=== PATIENT | female | born 1985 | race Caucasian/White ===

== ENCOUNTER 2017-10-04 15:48 | Inpatient (IN) | payer OTHER ==
[2017-10-04] MEDS ORDERED: Bupivacaine 0.75%/D5W 2 ML Amp ONE (16:47)
[2017-10-04] MEDS ORDERED: fentaNYL 100 MCG/2 ML SDV ONE (16:47)
[2017-10-04] MEDS ORDERED: EPINEPHrine 1 MG/ML SDV ONE (16:47)
[2017-10-04] MEDS ORDERED: Penicillin G Potassium 5 MILLUNITS in Sodium Chloride 0.9% 100 ML IV ONE (16:59)
[2017-10-04] MEDS ORDERED: Ondansetron 4 MG/2 ML SDV IV PRN (16:59)
[2017-10-04] MEDS ORDERED: Lactated Ringers 500 ML IV ONE (16:59)
[2017-10-04] MEDS ORDERED: Tranexamic Acid 1,000 MG in Sodium Chloride 0.9% 100 ML IV PRN (16:59)
[2017-10-04] MEDS ORDERED: Sodium Chloride 0.9% 10 ML Syringe FLUSH PRN (16:59)
[2017-10-04] MEDS ORDERED: Acetaminophen 325 MG Tab PO PRN (16:59)
[2017-10-04] MEDS ORDERED: Carboprost Tromethamine 250 MCG/1 ML Amp IM PRN (16:59)
[2017-10-04] MEDS ORDERED: Methylergonovine 0.2 MG/1 ML Amp IM PRN (16:59)
[2017-10-04] MEDS ORDERED: Misoprostol 400 MCG (4 X 100 MCG TAB) RECTAL PRN (16:59)
[2017-10-04] MEDS ORDERED: Lidocaine 1% 30 ML SDV INJECT PRN (16:59)
[2017-10-04] MEDS ORDERED: Oxytocin/Normal Saline 30 UNIT/500 ML BAG IV SCH (17:00)
[2017-10-04] MEDS ORDERED: Lactated Ringers 1,000 ML IV SCH (17:00)
--- NOTE | 2017-10-04 17:48 | PCM.PRNOTE ---
- Free Text/Narrative Note: Requested to provide analgesia to full term patient in severe pain. Upon entering the room, patient is supine in bed complaining of severe abdominal/ pelvic pain and discomfort. Procedure was discussed with patient including adverse outcomes and expectations. Pt consented to analgesia, SAB/IT. Pt placed into a sitting position. Landmarks for SAB/IT were identified and marked. Back was prepped with betadine x3. A sterile, transparent, fenestrated drape was applied. Excess betadine was removed. Using 3 mL of a 1% lidocaine solution, a skin wheel was placed at the L3/L4 interspace. A 24 ga (4 inch) Pencan spinal needle was inserted until positive for CSF. Negative for heme or paresthesias. Injected fentanyl 20 mcg, sufentanil 10 mcg, and 10 mg of a 0.75 % bupivacaine solution with an epi wash. Pt was placed left lateral position for approximately 20 minutes. There were zero complications or adverse outcomes. Will continue to monitor.
[2017-10-04] MEDS ORDERED: Benzocaine/Menthol 20%-0.5% Spray 56 GM Canister TOP PRN (19:34)
[2017-10-04] MEDS ORDERED: Simethicone 80 MG Tab.Chew PO PRN (19:34)
[2017-10-04] MEDS ORDERED: Penicillin G Potassium 3 MILLUNITS in Sodium Chloride 0.9% 100 ML IV SCH (22:00)
--- NOTE | 2017-10-05 00:31 | HP ---
CHIEF COMPLAINT: Increased force and frequency of contractions. HISTORY OF PRESENT ILLNESS: A 32-year-old 4, para 3-0-0-3 at 39 and 6/7 weeks' gestation based on last menstrual period, presents to Labor and Delivery reporting contractions starting around noon today and became more regular at approximately 2:00 p.m., presented to the hospital around 4:00 and found to be 7 cm dilated with bag of water intact and vertex presenting. Contractions were quite strong at that time and she was requesting intrathecal anesthesia had arrive around the same time I did, an intrathecal was placed, and she is now quite comfortable. She reports today good movement. No vaginal bleeding or leakage of fluid. No chest pain or shortness of breath. No headaches or blurry vision. No right upper quadrant pain. The swelling has been absent. She does, however, continue to have trouble with her varicose veins despite use of compression hose. No acute concerns other than excitement to have the baby. OBSTETRICAL HISTORY: #1 delivered on 03/01/2011, 41 weeks' gestation, male infant, vaginal delivery, named Donaldo, weight 4139 grams under intrathecal anesthesia, 10 hours of stage I, pushed for 2 hours, induction of labor because of postdates, delivered here at [facility] by Dr. Hooker. #2 delivered on 02/09/2013, 38 weeks 1 day gestation, male infant, vaginal spontaneous delivery, named Juanjose, weight 3430 grams, group B strep positive, intrathecal anesthesia, labor 10 hours, pushed for approximately 20 minutes, scores of 8 and 9, delivered by Dr. Reed. #3 delivered on 09/22/2014, 41 weeks 1 day gestation, female , spontaneous vaginal delivery, named her Baldwin, she weighed 3790 grams, intrathecal anesthesia, 5 hours of labor, pushed only for 2 minutes, scores of 6 and 9. There was terminal bradycardia, and mother was able to push well for rapid delivery. LABORATORY DATA: Blood type A positive. Antibody screen negative. Rubella immune. Syphilis serology nonreactive. Group B strep positive bacteriuria. Hepatitis B nonreactive. HIV nonreactive. Gonorrhea and chlamydia negative. Thyroid normal. Hepatitis C nonreactive. Wet prep negative. Hemoglobin 11.9, platelets 151. One-hour glucose tolerance test of 91. This , the ultrasound has shown normal anatomy with posterior placenta. Thirty-six week growth ultrasound was performed because of her history and estimated weight at that time was of the 51st percentile. : She has received her influenza and Tdap vaccines. Plans on bottle feeding. Had some spotting in the first trimester for approximately 1 day around 12 weeks. Otherwise, there had been no remarkable complications. PAST MEDICAL HISTORY: Acne, allergic rhinosinusitis, body piercings of ears, brow, and belly. No history of IV drug use or tattoos. She did have chickenpox when she was a child and a cyst in her hand in the right palm that was excised. She has menstrual migraines, history of nicotine dependence and quit in 2011, history of obesity, which was resolved with diet and exercise. PAST SURGICAL HISTORY: Excision of a retinacular volar ganglion in 2010 and wisdom teeth extraction. FAMILY HISTORY: Mother with high cholesterol. Father with high blood pressure, renal cell cancer, and recurrent rhinosinusitis and asthma. Paternal grandfather with heart surgery. Maternal grandmother is a twin. Otherwise, family history negative for anesthesia problems, defects, clotting disorders, bleeding disorders, cystic fibrosis, and seizures. 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 works for [employer]. No alcohol exposure this . They use natural family planning as their form of contraception. They have 2 boys and 1 girl at home and have selected to keep gender a surprise. MEDICATIONS: 1. vitamins. 2. Flonase as needed. ALLERGIES: No known drug allergies. REVIEW OF SYSTEMS: As per the history of present illness. No recent fever, chills, nausea, vomiting, diarrhea, constipation, dysuria, symptoms of preeclampsia, or other acute concerns. OBJECTIVE: Vital Signs: Temperature is 98.4, blood pressure 120/67, and pulse of 59. HEENT: Unremarkable. Neck: Supple without adenopathy. Heart: Regular without obvious murmur. Lungs: Clear to auscultation bilaterally. Abdomen: Soft without masses. Fundus appropriate with dates and baby palpates vertex. Baseline heart tones at 135 beats per minute. Moderate beat-to- beat variability accelerations noted. D'Lo showing contractions about every 3 minutes, but fairly difficult to trace. Cervical exam per the nurse, 100% effaced, 7 cm dilated, and 0 station. Bag of water intact. Extremities: No edema, erythema, or tenderness. Varicose veins present, worse on the left side than they are on the right. Skin. Overall, she has some sensitive skin with lots of freckles consistent with her ethnic background. ASSESSMENT: 1. 39 and 6/7 weeks' gestation based on last menstrual period. 2. 4, para 3-0-0-3. 3. Blood type A positive, rubella immune, and group B strep positive. 4. History of delivery of macrosomic infant. 5. Varicose veins of . 6. Spotting history in the first trimester. 7. History of menstrual migraines. 8. Allergic rhinosinusitis. 9. Thrombocytopenia. Admission platelets of 127. PLAN: The patient has been admitted to the hospital and received an intrathecal for pain management. Penicillin has been started, and we will try to give that at least 4 hours before artificial rupture of membranes is performed. However, I anticipate that she will spontaneously rupture before then and we will be delivering her baby sooner rather than later anticipating vaginal delivery; however, the patient and her understand that foreseen complications could arise altering our expected course. [facility] /[id number] MTDD
[2017-10-05] MEDS: Ibuprofen 800 MG Tab PO PRN ×2 (08:39→17:15)
[2017-10-05] MEDS: Prenatal Multivitamin with Calcium/Folic Acid/Iron Tab PO SCH (08:39)
[2017-10-05] MEDS: Docusate Sodium 100 MG Cap PO PRN ×2 (08:39→21:20)
--- NOTE | 2017-10-05 09:56 | DEL ---
DATE: 10/04/2017 PREPROCEDURE DIAGNOSES: 1. 4, para 3-0-0-3. 2. A 39 and 6/7 weeks' intrauterine based on last menstrual period. 3. Blood type O positive, rubella immune, group B Strep positive in the urine. 4. History of macrosomic infant. 5. Varicose veins. 6. First trimester spotting. 7. Thrombocytopenia. 8. History of menstrual migraine. 9. Chronic allergic rhinosinusitis. POSTPROCEDURE DIAGNOSES: 1. 4, now para 4-0-0-4. 2. A 39 and 6/7 weeks' intrauterine based on last menstrual period. 3. Blood type O positive, rubella immune, group B Strep positive in the urine. 4. History of macrosomic . 5. Varicose veins. 6. First trimester spotting. 7. Thrombocytopenia. 8. History of menstrual migraine. 9. Chronic allergic rhinosinusitis. 10.Status post spontaneous vaginal delivery. BRIEF HISTORY: A 32-year-old with the above-listed diagnoses, presented to the hospital earlier this evening with spontaneous onset of labor and was 7 cm dilated, had an intrathecal for pain management. She was in stage I labor for approximately 5 hours and in order to try and allow the PCN to be on board longer, we had her labor down for an hour at which time she was and she pushed through one contraction and that resulted in spontaneous vaginal delivery with details below. Spontaneous ROM occurred when she started pushing. PROCEDURE: With the patient in dorsal lithotomy position, she delivered a viable female in the OA position over intact perineum. Baby's scores were 9 and 9. Weight 3305g, and length 19.5 inches. Infant was delivered and nasal and mouth suctioning performed. Baby was dried and stimulated and placed on mother's abdomen. Delay was allowed before doubly clamping the three-vessel umbilical cord and cord blood sample was then collected. Placenta then delivered by gentle cord traction and concomitant uterine massage, inspected and intact. During this time, bladder was also catheterized for 600 mL of clear urine. Labia and vagina inspected. There was a left-sided anterior superficial laceration that was hemostatic and did not need repair. Otherwise, only some superficial skin vinson of the perineum and labia. Mother tolerated the procedure well. COMPLICATIONS: None. ESTIMATED BLOOD LOSS: 400 mL. FINDINGS: Viable female infant, score of 9 and 9. Weight as above. DISPOSITION: Mother and baby to stay in the room at this time to initiate skin to skin bonding. [facility] /[id number] MTDD
[2017-10-05] MEDS ORDERED: EPINEPHrine 1 MG/ML SDV IV ONE (11:25)
[2017-10-05] MEDS ORDERED: fentaNYL 100 MCG/2 ML SDV ITHECAL ONE (11:25)
--- NOTE | 2017-10-05 14:50 | PN ---
DATE: 10/05/2017 SUBJECTIVE: day #1, doing well, ambulating and tolerating regular diet, voiding without difficulties. She has not yet had a bowel movement. Bleeding has been as expected. She is bottle feeding her baby and reports feeling well, comfortable with discharge home tomorrow. OBJECTIVE: Vital Signs: Temperature is 98.7, pulse 59, blood pressure 99/52, respiratory rate of 16, and O2 saturations 100% on room air. Heart: Regular without obvious murmur. Lungs: Clear to auscultation bilaterally. Abdomen: Soft and nontender. Positive bowel sounds. Fundus is firm and below the umbilicus. Extremities: Trace edema. No erythema or tenderness. LABORATORY DATA: Hemoglobin down to 11.7 from a previous 13.2. Platelets down to 117 from a previous 127. ASSESSMENT: 1. Post vaginal delivery day #1, doing well. 2. Varicose veins. 3. Thrombocytopenia, . 4. Other diagnoses as per her admission history and physical. PLAN: Continue normal post vaginal delivery cares and anticipate discharge home tomorrow. Patient's questions have been answered. [facility] /[id number]
[2017-10-06] MEDS: Docusate Sodium 100 MG Cap PO PRN (08:25)
[2017-10-06] MEDS: Prenatal Multivitamin with Calcium/Folic Acid/Iron Tab PO SCH (08:25)
[2017-10-06] MEDS: Ibuprofen 800 MG Tab PO PRN (08:25)
[2017-10-06 08:57] VITALS: BP 94/60
--- NOTE | 2017-10-20 17:55 | DISCH ---
DATE OF SERVICE: 10/06/2017 ADMITTING DIAGNOSES: 1. A 39 and 6/7 weeks' intrauterine . 2. 4, para 3-0-0-3. 3. Blood type A positive, rubella immune, and group B streptococcus positive. 4. History of macrosomia. 5. Varicose veins. 6. Spotting in the first trimester of . DISCHARGE DIAGNOSES: 1. A 39 and 6/7 weeks' intrauterine . 2. 4, para 4-0-0-4. 3. Blood type A positive, rubella immune, and group B streptococcus positive. 4. History of macrosomia. 5. Varicose veins. 6. Spotting in the first trimester of . 7. Thrombocytopenia. 8. Anemia of blood loss. BRIEF HISTORY: A 32-year-old female admitted to the hospital in spontaneous labor with the above-listed diagnoses. After 5 hours of labor and 1 hour of laboring down, she pushed for 1 minute and delivered a viable female . scores of 9 and 9, weight 3305 g, length 19-1/2 inches. Please see history and physical and delivery note for full details. HOSPITAL COURSE: Hospital course has been good. She has been ambulating, tolerating regular diet, bottle-feeding her baby without complications. Bleeding has been as expected. No symptoms of preeclampsia and ready for discharge home today. DISCHARGE PHYSICAL EXAMINATION: General: Good. Vital Signs: Temperature is 98.6, pulse 65, blood pressure 94/60, respiratory rate of 16, and O2 saturations 100% on room air. Heart: Regular without murmur. Lungs: Clear to auscultation bilaterally. Abdomen: Soft and nontender without masses. LABORATORY DATA: Admission hemoglobin 13.2, platelets 127. Discharge hemoglobin 11.7, platelets 117. DISPOSITION: Home with family. MEDICATIONS: 1. [id number] Tylenol and ibuprofen as needed for pain or discomfort. 2. Iron 325 mg twice daily. 3. Colace 100 mg twice daily as needed for constipation. INSTRUCTIONS: Routine postvaginal delivery instructions were provided, and she will make a 6-week exam appointment at the office, and all of her questions were answered. [facility] /[id number] [facility]US[facility]
== END 2017-10-06 12:30 | disposition home or self-care (01) | DRG 775 ==
LOC: DL.OBCHECK 15:48 → DL.OB 16:38 → OBSVTOIN 20:02
PROVIDERS: ADMIT Family Medicine; ATTEND Family Medicine
PROC: 10E0XZZ Delivery of Products of Conception, External Approach (ICD-10-PCS; principal; 2017-10-04)
DX: O99.12 Other diseases of the blood and blood-forming organs and certain disorders involving the immune mechanism complicating childbirth (principal); O99.824 Streptococcus B carrier state complicating childbirth; I83.90 Asymptomatic varicose veins of unspecified lower extremity; Z3A.39 39 weeks gestation of pregnancy; Z37.0 Single live birth; J30.9 Allergic rhinitis, unspecified
CPT/HCPCS: 36415; 59409; 85027; A9270-GY; J0171; J2540; J2590; J3010; J7050; J7120

== ENCOUNTER 2020-12-26 10:57 | Inpatient (IN) | payer OTHER ==
[2020-12-26] MEDS ORDERED: Ondansetron 4 MG/2 ML SDV IVPUSH PRN ×2 (12:35)
[2020-12-26] MEDS ORDERED: Acetaminophen 325 MG Tab PO PRN ×3 (12:35→21:45)
[2020-12-26] MEDS ORDERED: Sodium Chloride 0.9% 10 ML Syringe FLUSH PRN ×2 (12:35→21:45)
[2020-12-26] MEDS ORDERED: Carboprost Tromethamine 250 MCG/1 ML Amp IM PRN ×2 (12:35→21:45)
[2020-12-26] MEDS ORDERED: ePHEDrine 50 MG/ML SDV IVPUSH PRN (12:35)
[2020-12-26] MEDS ORDERED: Promethazine 25 MG/ML SDV IM PRN (12:35)
[2020-12-26] MEDS ORDERED: Naloxone 2 MG/2 ML Syringe IVPUSH PRN (12:35)
[2020-12-26] MEDS ORDERED: Lactated Ringers 1,000 ML IV ONE (12:35)
[2020-12-26] MEDS ORDERED: Tranexamic Acid 1,000 MG in Sodium Chloride 0.9% 100 ML IV PRN ×2 (12:35→21:45)
[2020-12-26] MEDS ORDERED: Misoprostol 400 MCG (4 X 100 MCG TAB) RECTAL PRN ×2 (12:35→21:45)
[2020-12-26] MEDS ORDERED: Methylergonovine 0.2 MG/1 ML Amp IM PRN (12:35)
[2020-12-26] MEDS ORDERED: Lidocaine 1% 30 ML SDV INJECT PRN (12:35)
[2020-12-26] MEDS ORDERED: Oxytocin/Normal Saline 30 UNIT/500 ML BAG IV SCH ×2 (12:45)
[2020-12-26] MEDS: Lactated Ringers 1,000 ML IV SCH ×3 (14:30→19:53)
[2020-12-26] MEDS ORDERED: fentaNYL 100 MCG/2 ML SDV ONE (19:25)
[2020-12-26] MEDS ORDERED: EPINEPHrine 1 MG/1 ML Amp ONE ×2 (19:25→19:35)
[2020-12-26] MEDS ORDERED: fentaNYL 100 MCG/2 ML SDV ITHECAL ONE (19:35)
--- NOTE | 2020-12-26 20:29 | PCM.PRNOTE ---
- Free Text/Narrative Note: Requested to provide analgesia to full term patient in severe pain. Upon entering the room, patient is sitting on edge of bed complaining of severe abdominal/pelvic pain and discomfort. Procedure was discussed with patient including adverse outcomes and expectations. Pt consented to analgesia, SAB/IT. Pt placed into a proper sitting position. Landmarks for SAB/IT were identified and marked. Hands were washed and appropriate PPE was applied. Back was prepped with betadine x3. A sterile, transparent, fenestrated drape was applied. Excess betadine was removed. Using 3 mL of a 1% lidocaine solution, a skin wheel was placed at the L2/L3 interspace. A 24 ga (4 inch) Pencan spinal needle was inserted until positive for CSF. Negative for heme or paresthesias. Injected fentanyl 30 mcg, sufentanil 25 mcg, and 7.5 mg of a 0.75% bupivacaine solution with an epi wash. Pt was placed left lateral tilt position for approximately 20 minutes. There were zero complications or adverse outcomes. Will continue to monitor. Procedure Date & Time: 12-26-20
[2020-12-26] MEDS ORDERED: Oxytocin 10 Units/1 ML SDV IM PRN (21:45)
[2020-12-26] MEDS ORDERED: Benzocaine/Menthol 20%-0.5% Spray 78 GM Cannister TOP PRN (21:45)
[2020-12-26] MEDS ORDERED: Zolpidem 5 MG Tab PO PRN (21:45)
[2020-12-26] MEDS ORDERED: Simethicone 80 MG Tab.Chew PO PRN (21:45)
--- NOTE | 2020-12-26 21:48 | PN ---
DATE: 12/26/2020 HOSPITAL DIAGNOSES: 1. 5, para 4-0-0-4 2. 40 weeks 0 days' gestation, exact LMP 03/21/2020. 3. Advanced maternal age, multigravida. 4. Benign gestational thrombocytopenia, 3rd trimester. Platelet count on admission was 120. 5. Varicose veins bilaterally. 6. Coronavirus disease 2019 positive on admission, asymptomatic. 7. History of macrosomia in previous pregnancies. SUBJECTIVE: Artificial rupture of membranes was performed. The patient is comfortable and has no complaints at this time. Pitocin is running at a rate of 4. The patient believes contractions are the same in intensity. No other concerns at this time. OBJECTIVE: Current Vital Signs: BP 114/67, P 61, respirating on room air, afebrile. General: Alert, no concerning distress. Heart Tones: Category I strip, baseline at 125, moderate variability, positive for accelerations, negative for decelerations. Riner: Gurinder every 2 to 3 minutes. Pelvic After Artificial Rupture of Membranes: 4 cm dilated, 50% effaced, station 0, clear amniotic fluid. Extremities: Varicose veins bilaterally, no concerning edema. PROCEDURE PERFORMED: Artificial rupture of membranes. The patient was placed in a supine position with knees bent and thighs apart. Sterile gloves were worn, and cervical exam revealed head was well applied to the cervix. [place] was slid between fingers, guided to the amniotic sac, and pressure was placed. Bag was ruptured without complication. Clear fluid drained, and the opening was widened with blunt dissection of fingers. Cord was not palpated. The fetus tolerated the procedure well. The patient tolerated the procedure well. No bleeding was present. ASSESSMENT/PLAN: The patient is a 35-year-old 5, para 4-0-0-4, at 40 weeks 0 days' gestation, who is admitted for induction of labor. We will continue to monitor progress of labor. We will increase Pitocin per protocol. Planning on rechecking cervical examination in 2 hours, approximately 1930 hours. We will do a cervical check if the patient is feeling increased pressure or if clinically indicated. Discussed with the patient options for pain management as labor progresses. The patient verbalized understanding and will request intrathecal if desired. We will continue to perform monitoring. Encouraged mother to ambulate as tolerated. No other concerns at this time. DANO KnoxII [facility] /[id number] MTDKaylin
[2020-12-26] MEDS: Ibuprofen 800 MG Tab PO PRN (22:48)
[2020-12-26] MEDS: Docusate Sodium 100 MG Cap PO PRN (22:48)
--- NOTE | 2020-12-27 01:53 | DEL ---
DATE OF DELIVERY: 12/26/2020. PREDELIVERY DIAGNOSES: 1. 5, para 4-0-0-4. 2. 40 weeks and 0 days gestation, exact LMP 03/21/2020. 3. Advanced maternal age, multigravida. 4. Benign gestational thrombocytopenia, 3rd trimester. Platelet count on admission was 120. 5. Varicose veins bilaterally. 6. Coronavirus disease-2019 positive on admission, asymptomatic. 7. History of macrosomia in previous pregnancies. POSTDELIVERY DIAGNOSES: 1. 5, now para 5-0-0-5. 2. 40 weeks and 0 days gestation, status post vaginal delivery following induction of labor with Pitocin. 3. Advanced maternal age, multigravida. 4. Benign gestational thrombocytopenia, 3rd trimester. Platelet count on admission was 120. 5. Varicose veins bilaterally. 6. Coronavirus disease-2019 positive on admission, asymptomatic. 7. History of macrosomia in previous pregnancies. 8. Uterine atony, treated with 1 dose of Methergine. BRIEF HISTORY: A 35-year-old female admitted to the hospital around noon this morning for induction of labor with Pitocin. Pitocin was started at approximately 1:30 p.m. and titrated per protocol. Artificial rupture of membranes was performed at 5:30 p.m. presenting with clear amniotic fluid. Cervical change was being made and Pitocin was increased per protocol. Intrathecal was placed for pain management. The patient was in dorsal lithotomy position, and delivered a viable female in ANDRIY position over intact perineum. Nuchal cord was not present. Delivery of the head and then the anterior shoulder performed. Baby was dried, stimulated, and bulb suctioning was performed. Baby was then placed on mother's abdomen. After a delay in cessation of cord pulsations, a 3-vessel umbilical cord was doubly clamped and cut, and cord blood sample obtained. Placenta was delivered by gentle cord traction and concomitant uterine massage. Labia were inspected and there were some superficial lacerations/abrasions that were hemostatic and there was a periurethral abrasion that was hemostatic after pressure was placed for 2 minutes. These lacerations/abrasions did not need repair. 400 mL of urine was expelled during straight cath. Approximately 30 minutes after delivery, uterine tone was noted to be mildly boggy, and due to the patient's history of low platelets, 1 dose of methargen was given. We will continue to monitor bleeding. COMPLICATIONS: None. ESTIMATED BLOOD LOSS: 150 mL. DISPOSITION: Mother and baby to stay in the room due to COVID-19 positivity. Plan on formula feeding exclusively. DANO KnoxII [facility] /[id number] MTDD
[2020-12-27] MEDS: Docusate Sodium 100 MG Cap PO PRN (08:58)
[2020-12-27] MEDS: Ibuprofen 800 MG Tab PO PRN ×2 (08:58→17:11)
[2020-12-27] MEDS: Prenatal Multivitamin with Calcium/Folic Acid/Iron Tab PO SCH (08:58)
--- NOTE | 2020-12-27 11:00 | PN ---
DATE: 12/27/2020 HOSPITAL DIAGNOSES: 1. 5, now para 5-0-0-5. 2. 40 weeks and 0 day gestation, status post vaginal delivery following induction of labor with Pitocin. 3. Advanced maternal age, multigravida. 4. Benign gestational thrombocytopenia, third trimester. Platelet count on admission was 120. 5. Varicose veins bilaterally. 6. Coronavirus disease 2019 positive on admission, asymptomatic. 7. History of macrosomia in previous pregnancies. 8. Uterine atony, treated with 1 dose of Methergine. SUBJECTIVE: No concerns from the patient this morning. She is ambulating and voiding appropriately. She notes that her bleeding is moderate and she does report passing clots when going to the bathroom. She is tolerating p.o. diet. She has not passed flatus yet or had a bowel movement. She denies chest pain, shortness of breath, fevers, nausea, vomiting, or chills. She is exclusively formula feeding. OBJECTIVE: Vital Signs: P 51, BP 106/44, respiratory rate 16. General: Alert. No concerning distress. Heart: Regular rate and rhythm. No murmur heard. Lungs: CTA bilaterally. No wheezes, rhonchi, or rales present. Good chest expansion. Abdomen: Uterus 3 fingerbreadths below umbilicus, firm at midline, appropriately tender. Extremities: Varicose veins bilaterally. Nonconcerning edema. ASSESSMENT AND PLAN: Rachell Gallardo is a 35-year-old female status post vaginal delivery at 40 weeks 0 day gestation. 1. We will continue to monitor for signs and symptoms of bleeding/ hemorrhage. We will order a CBC for tomorrow morning. 2. Continue to advance activity as tolerated. 3. Continue general diet as tolerated. 4. Continue using Motrin as needed for pain, 800 mg p.o. every 8 hours. We will start ferrous sulfate 325 mg once daily. 5. The patient verbalizes understanding, is in agreement with plan. 6. Expect discharge tomorrow morning on day 2 following delivery. [facility] /[id number]
[2020-12-28] MEDS: Ibuprofen 800 MG Tab PO PRN (04:30)
[2020-12-28 08:30] VITALS: BP 100/61; PULSE 57
[2020-12-28] MEDS: Prenatal Multivitamin with Calcium/Folic Acid/Iron Tab PO SCH (08:37)
[2020-12-28] MEDS: Docusate Sodium 100 MG Cap PO PRN (08:37)
--- NOTE | 2020-12-28 21:32 | DISCH ---
ADMITTING DIAGNOSES: 1. 5, para 4-0-0-4, admitted for induction of labor. 2. 40 weeks and 0 days gestation based upon exact LMP. 3. Advanced maternal age, multigravida. 4. Benign gestational thrombocytopenia, 3rd trimester. Platelet count on admission was 120. 5. Varicose veins bilaterally. 6. Coronavirus disease 2019 positive on admission, asymptomatic. 7. History of macrosomia, previous pregnancies. DISCHARGE DIAGNOSES: 1. 5, now para 5-0-0-5. 2. 40 weeks and 0 days gestation, status post vaginal delivery following induction of labor with Pitocin. 3. Advanced maternal age, multigravida. 4. Benign gestational thrombocytopenia, 3rd trimester. Platelet count stabilized. 5. Varicose veins bilaterally. 6. Coronavirus disease 2019 positive on admission, asymptomatic. 7. History of macrosomia, previous pregnancies. 8. Uterine atony, treated with 1 dose methargen. PROCEDURES PERFORMED: 1. Intrathecal anesthesia. 2. Spontaneous vaginal delivery without complications or repair. BRIEF HISTORY: A 35-year-old female with the above-listed diagnoses, was admitted to Labor and Delivery for induction of a term . She did receive an intrathecal for pain management and worked very well. When cervix was completely dilated, she pushed for approximately 2 minutes and did quite well. A viable female was born. Estimated blood loss was approximately 150 mL at time of delivery. Placenta was delivered without complication. There were vaginal wall and periurethral abrasions that were hemostatic and did not require repair. Approximately 30 minutes following delivery, it was reported there was increased bleeding and 1 dose of Methergine was given for uterine atony. No other complications. HOSPITAL COURSE: Has been good. Bleeding has been menses like after delivery with minimal passage of any clots. She is exclusively formula feeding, ambulating, and tolerating a regular diet. She denies any chest pain, shortness of breath, fevers, chills, nausea, or vomiting. She had a bowel movement earlier. No signs of infection or other complications. She is requesting discharge home today. DISCHARGE CONDITION: Good. PHYSICAL EXAMINATION: Vital Signs: T 98.2 F, P 52, BP 95/55, and RR 16. General: Alert, no acute distress. Heart: Regular rate and rhythm, no murmur noted. Lungs: Clear to auscultation bilaterally with good chest expansion. Abdomen: Soft, appropriately tender. Fundus is firm 1 fingerbreadth above the umbilicus and right to midline. Extremities: No concerning edema. Varicose veins bilaterally. LABORATORY DATA: Admission CBC: WBC 5.7, RBC 4.21, HGB 13.1, HCT 38.7, and platelet count 120. SARS-CoV-2 RNA: Positive. Discharge CBC: WBC 5.3, RBC 3.57, HGB 11.0, HCT 33.3, and platelet count 111. DISPOSITION: Home with family. MEDICATIONS: [id number] Tylenol and ibuprofen as needed for pain. May continue vitamin until visit at 6 weeks. Continue iron 325 mg once daily. FOLLOWUP: She will be seen in 6 weeks for routine examination. She will be screened for depression when she brings the baby back for weight check on Thursday and 2-week well-child exam. She may also be seen in clinic sooner if needed for herself or her other children. INSTRUCTIONS: Routine post vaginal delivery instructions for formula feeding mother were provided and all of her questions were answered. LAMAR Knox [facility] /[id number] MTDD
== END 2020-12-28 09:00 | disposition home or self-care (01) | DRG 805 ==
LOC: EDSTATUS 10:59 → DL.OB 12:14 → OBSVTOIN 21:27 → DL.OB 21:27
PROVIDERS: ADMIT Family Medicine; ATTEND Family Medicine
PROC: 10E0XZZ Delivery of Products of Conception, External Approach (ICD-10-PCS; principal; 2020-12-26)
PROC: 10907ZC Drainage of Amniotic Fluid, Therapeutic from Products of Conception, Via Natural or Artificial Opening (ICD-10-PCS; 2020-12-26)
PROC: 3E0R3BZ Introduction of Anesthetic Agent into Spinal Canal, Percutaneous Approach (ICD-10-PCS; 2020-12-26)
PROC: 3E033VJ Introduction of Other Hormone into Peripheral Vein, Percutaneous Approach (ICD-10-PCS; 2020-12-26)
DX: O48.0 Post-term pregnancy (principal); U07.1 COVID-19; Z37.0 Single live birth; O99.12 Other diseases of the blood and blood-forming organs and certain disorders involving the immune mechanism complicating childbirth; O98.52 Other viral diseases complicating childbirth; O72.1 Other immediate postpartum hemorrhage; Z3A.40 40 weeks gestation of pregnancy; D69.6 Thrombocytopenia, unspecified; O76 Abnormality in fetal heart rate and rhythm complicating labor and delivery; O70.0 First degree perineal laceration during delivery
CPT/HCPCS: 01967; 36415; 51701; 59409; 85027; A9270-GY; J0171; J2210; J2405; J2590; J3010; J7120; U0002

== ENCOUNTER 2023-07-09 22:07 | Emergency (ER) | payer OTHER ==
[2023-07-09] MEDS ORDERED: Sodium Chloride 0.9% 10 ML Syringe FLUSH PRN (22:30)
[2023-07-09 22:40] LABS: BASOPHILS PERCENT AUTO 0.5 % (0.0-1.0); EOSINOPHILS PERCENT AUTO 4.7 % (1.0-3.0); HEMATOCRIT 36.7 % (37.0-47.0); HEMOGLOBIN 12.3 g/dL (12.0-16.0); LYMPHOCYTES PERCENT AUTO 35.3 % (20.5-50.1); MEAN CORPUSCULAR HEMOGLOBIN 29.4 pg (27.0-34.0); MEAN CORPUSCULAR HGB CONC 33.5 g/dL (33.0-35.0); MEAN CORPUSCULAR VOLUME 87.6 fL (80-100); MONOCYTES PERCENT AUTO 7.1 % (2-8); NEUTROPHILS PERCENT AUTO 52.4 % (42.2-75.2); PLATELET COUNT,PLT 171 10^3/uL (150-450); RED BLOOD CELL COUNT 4.19 10^6/uL (4.2-5.4); WHITE BLOOD CELL COUNT,WBC 6.5 10^3/uL (5.0-10.0)
[2023-07-09 23:07] LABS: A/G RATIO 1.1; ALANINE AMINOTRANSFERASE,ALT 24 U/L (14-59); ALBUMIN 3.7 g/dL (3.4-5.0); ALKALINE PHOSPHATASE 47 U/L (46-116); ANION GAP 13.3 mEq/L (7-13); ASPARTATE AMNIOTRANSFERASE,AST 17 U/L (15-37); BILIRUBIN TOTAL 0.9 mg/dL (0.2-1.0); BLOOD UREA NITROGEN,BUN 16 mg/dL (7-18); BUN/CREATININE RATIO 21.6 (No establ ref range); CALCIUM 8.7 mg/dL (8.5-10.1); CARBON DIOXIDE,CO2 25 mmol/L (21-32); CHLORIDE,CL 102 mmol/L (98-107); CREATININE 0.74 mg/dL (0.55-1.02); EST CRCL DRUG DOSING (CG) 107.72 mL/min; GLUCOSE RANDOM 135 mg/dL (70-99); POTASSIUM,K 3.3 mmol/L (3.5-5.1); PROTEIN TOTAL,TP 7.1 g/dL (6.4-8.2); SODIUM,NA 137 mmol/L (136-145); TSH ULTRASENSITIVE 2.37 uIU/mL (0.36-3.74)
[2023-07-09 23:08] LABS: ESTIMATED GFR 106 mL/min (>=60); ETHANOL BLOOD MEDICAL < 3 mg/dL (0)
[2023-07-09 23:36] LABS: APPEARANCE,URINE CLEAR (CLEAR); BILIRUBIN,URINE NEGATIVE (NEGATIVE); COLOR,URINE YELLOW (YELLOW); GLUCOSE,URINE NEGATIVE (NEGATIVE); KETONES,URINE NEGATIVE (NEGATIVE); LEUKOCYTE ESTERASE,URINE NEGATIVE (NEGATIVE); NITRITE,URINE NEGATIVE (NEGATIVE); OCCULT BLOOD,URINE LARGE (NEGATIVE); PROTEIN,URINE NEGATIVE (NEGATIVE); UROBILINOGEN,URINE 0.2 mg/dL (0.2-1.0)
[2023-07-09 23:38] LABS: AMPHETAMINES,URINE NEGATIVE (NEGATIVE); BARBITURATES,URINE NEGATIVE (NEGATIVE); BENZODIAZEPINE,URINE NEGATIVE (NEGATIVE); MDMA (ECSTASY), URINE NEGATIVE (NEGATIVE); METHADONE,URINE NEGATIVE (NEGATIVE); METHAMPHETAMINES,URINE NEGATIVE (NEGATIVE); OPIATES,URINE NEGATIVE (NEGATIVE); OXYCODONE,URINE NEGATIVE (NEGATIVE); PHENCYCLIDINE,URINE NEGATIVE (NEGATIVE); TCA,URINE NEGATIVE (NEGATIVE)
[2023-07-09 23:53] LABS: BACTERIA,URINE FEW /HPF (0-FEW/HPF); EPITHELIAL CELLS,URINE FEW /HPF (NOT SEEN); WBC,URINE 0-5 /HPF (0-5/HPF)
[2023-07-10] MEDS ORDERED: Misoprostol 100 MCG Tab BUCCAL ONE (00:41)
[2023-07-10] MEDS ORDERED: Misoprostol 400 MCG (4 X 100 MCG TAB) ONE (00:47)
[2023-07-10] MEDS ORDERED: Misoprostol 400 MCG (4 X 100 MCG TAB) RECTAL ONE (00:49)
[2023-07-10 01:01] VITALS: BP 123/73; PULSE 65
== END 2023-07-10 01:06 | disposition home or self-care (01) ==
LOC: DL.ED 22:07
DX: O02.0 Blighted ovum and nonhydatidiform mole (principal); O99.211 Obesity complicating pregnancy, first trimester; Z86.16 Personal history of COVID-19; Z79.899 Other long term (current) drug therapy; Z3A.12 12 weeks gestation of pregnancy
CPT/HCPCS: 36415; 76801; 80053; 80305; 80307; 81001; 84443; 84702; 85025; 99284; A9270; J3490